=== PATIENT | male | born 1955 | race American Indian/Alaskan Native ===

== ENCOUNTER 2016-09-26 13:33 | Outpatient (CLI) | payer MEDICARE ==
--- NOTE | 2016-09-26 14:05 | XRay Report ---
CHEST 2 VIEWS INDICATION: Preop examination. COMPARISON: 02/11/2015 FINDINGS: Frontal and lateral chest radiographs demonstrate normal, smaller cardiomediastinal silhouette. Clear lungs. Numerous old healed displaced right rib fractures noted. CONCLUSION: No acute disease in the chest, as described. Thank you for the opportunity to participate in this patient's care.
== END 2016-09-26 13:34 | disposition home or self-care (01) ==
LOC: SPVIMAG 13:33
PROVIDERS: ATTEND Family Medicine Adult Medicine
DX: Z01.818 Encounter for other preprocedural examination (principal)
CPT/HCPCS: 71020

== ENCOUNTER 2016-12-27 09:37 | Outpatient (CLI) | payer MEDICARE ==
--- NOTE | 2016-12-27 10:24 | XRay Report ---
Right foot 2 views: History: Status post calcaneal osteotomy. Findings: Stable osteotomy at posterior calcaneum with fixation screws. Arthritic changes of the talotibial joint. Fusion of subtalar joint. No acute fracture. Impression: Stable osteotomy.
== END 2016-12-27 09:38 | disposition home or self-care (01) ==
LOC: SPVIMAG 09:37
DX: M19.071 Primary osteoarthritis, right ankle and foot (principal); Z98.890 Other specified postprocedural states